=== PATIENT | female | born 1945 | race African-American/Black ===

== ENCOUNTER 2019-08-11 10:08 | Outpatient (CLI) | payer MEDICARE ==
[2019-08-11 10:53] LABS: Estimated GFR-MDRD - POC Greater than 90
--- NOTE | 2019-08-11 12:22 | CT ---
CT Abdomen Pelvis W Con HISTORY: Colonic mass noted on recent colonoscopy. COMPARISON: CT of chest performed the [facility] dated 04/02/2004 FINDINGS: The lung bases show some chronic change. There is some mild fatty change to the liver witho ut evidence of any focal mass. The spleen and pancreas regions appear unremarkable. The gallbladder has been removed. A large hiatal hernia is seen. The right adrenal gland is normal in appearance. There is a 3.2 cm left adrenal mass which does not h ave characteristics of an adenoma. Review of a 2004 CT of the chest does show that this lesion was present and is stable in size and therefore compatible with a benign lesion. The right and left kidne ys show somewhat lobulated contour. There is a hypodense lesion involving the right kidney difficult to characterize due to its small size CT Hounsfield unit numbers are 68 which are higher th an a typical cyst, this measures in the 13 mm range. This would require follow-up. There is no significant periaortic adenopathy. There is diffuse colonic diverticulosis noted. No mesenteric adeno estephania is appreciated. The appendix is normal. A fat-containing paraumbilical hernia is noted. CT of pelvis performed with contrast enhancement: There is a mass within the fundus region uterus thi s could potentially represent a subtle serosal fibroid but also could represent an endometrial mass. It measures 4.2 cm in size.. IMPRESSION: 1. Large hiatal hernia. 2. Colonic diverticulosis 3. 1.3 cm indeterminate right renal mass. Follow-up CT is recommended for assessment using renal mass protocol. 4. 4.2 cm mass within the fundus of the uterus, this could represent a subserosal fibroid but an endo metrial mass is not excluded gynecological consultation is recommended. 5. Stable left renal mass as compared to 2004 exam.
[2019-08-11] MEDS ORDERED: ISOVUE-370 76%-LOCM 1 ML ONE (12:34)
== END 2019-08-11 10:09 | disposition home or self-care (01) ==
LOC: BICCT 10:08
PROVIDERS: ATTEND Internal Medicine
DX: K63.89 Other specified diseases of intestine (principal); K44.9 Diaphragmatic hernia without obstruction or gangrene; K57.30 Diverticulosis of large intestine without perforation or abscess without bleeding; N28.89 Other specified disorders of kidney and ureter; N85.8 Other specified noninflammatory disorders of uterus
CPT/HCPCS: 74177; 82565

== ENCOUNTER 2019-08-26 10:13 | Outpatient (CLI) | payer MEDICARE ==
--- NOTE | 2019-08-26 14:26 | CT ---
CT ABDOMEN AND PELVIS WITH AND WITHOUT IV CONTRAST: HISTORY: Malignant neoplasm of sigmoid colon. COMPARISON: 08/11/2019. FINDINGS: There is a tiny calcified granuloma at the right lung base. There is mild linear scarring versus ate lectasis at the left lung base. A moderate-sized hiatal hernia is again noted. Vascular calcifications are seen in the coronary arteries as well as involving the abdominal aorta an d iliac arteries. The liver, spleen, pancreas, and right adrenal gland demonstrate a normal CT appearance. A 3.1 cm left adrenal mass is again seen which again does not have characteristics on the precontrast images of an adrenal adenoma, but washout characteristics are suggestive of adrenal adenoma. This l esion is also stable since the study in 2003. There is an increased density lesion present within the inferior pole of the right kidney which does not demonstrate enhancement between pre- and postcontrast images and is most suggestive of a Bosniak type II hyperdense renal cystic lesion. A few tiny nonobstructing renal calculi are seen bilaterally. There is no hydronephrosis or ureteral calculus seen. The previously noted heterogeneous mass-like density within the central aspect of the body and fundus of the uterus is present which again may represent a uterine fibroid measuring 3.6 cm, but an endome trial mass cannot be entirely excluded. There is a prominent ventral abdominal wall hernia in a periumbilical location. Multiple colonic div erticula are seen throughout the colon. The appendix is visualized and normal in caliber. Hemangioma is present in the L3 vertebral body. Degenerative changes are seen in the lower lumbar spi ne. No other interval change. IMPRESSION: 1. Bosniak type II cystic renal lesion right kidney. 2. Left adrenal adenoma. 3. Heterogeneous mass within the central aspect body and fundus of the uterus which may represen t a uterine fibroid, but an endometrial mass cannot be entirely excluded. As recommended on the prior exam, gynecological consultation is recommended. Pelvic ultrasound may be helpful for further evalua tion. 4. Moderately large hiatal hernia. 5. Ventral abdominal wall fat containing hernia. 6. Tiny nonobstructing bilateral renal calculi. POS: [facility]
== END 2019-08-26 10:14 | disposition home or self-care (01) ==
LOC: SCSCT 10:13
PROVIDERS: ATTEND Specialist
DX: C18.7 Malignant neoplasm of sigmoid colon (principal); N28.9 Disorder of kidney and ureter, unspecified; D35.02 Benign neoplasm of left adrenal gland; N85.8 Other specified noninflammatory disorders of uterus; K44.9 Diaphragmatic hernia without obstruction or gangrene; N20.0 Calculus of kidney
CPT/HCPCS: 74178

== ENCOUNTER 2019-09-21 09:49 | Outpatient (CLI) | payer MEDICARE ==
[2019-09-21 14:04] LABS: Hemoglobin A1c 6.4 % (4.0-6.0)
[2019-09-21 14:18] LABS: Anion Gap 16 mmol/L (10-20); BUN (Urea Nitrogen) 14 mg/dL (9.8-20.1); Calc. Creatinine Clearance 0 mL/min (70-130); Calcium 9.6 mg/dL (7.8-10.44); Carbon Dioxide 27 mmol/L (23-31); Chloride 104 mmol/L (98-107); Estimated GFR-MDRD 84; Glucose 103 mg/dL (83-110); Potassium 4.3 mmol/L (3.5-5.1); Sodium 143 mmol/L (136-145)
== END 2019-09-21 09:50 | disposition home or self-care (01) ==
LOC: LABBT 09:49
PROVIDERS: ATTEND Obstetrics & Gynecology
DX: Z01.818 Encounter for other preprocedural examination (principal); C18.9 Malignant neoplasm of colon, unspecified; D25.9 Leiomyoma of uterus, unspecified
CPT/HCPCS: 80048; 83036; 93005; 93010

== ENCOUNTER 2019-09-27 06:07 | Inpatient (IN) | payer MEDICARE ==
[2019-09-21 12:25] VITALS: BMI 34.4
[2019-09-21 14:05] LABS: Hemoglobin 14.4 g/dL (12.0-16.0); Mean Corpuscular HGB CONC 31.5 g/dL (32.0-36.0); Mean Corpuscular Hemoglobin 27.7 pg (27.0-31.0); Mean Corpuscular Volume 87.9 fL (78.0-98.0); Mean Platelet Volume 9.8 fL (7.4-10.4); Platelet Count 220 thou/uL (130-400); RBC Distribution Width 13.5 % (11.5-14.5); Red Blood Cell (RBC) Count 5.19 mill/uL (4.20-5.40); White Blood Cell (WBC) Count 9.1 thou/uL (4.8-10.8)
[2019-09-27] MEDS ORDERED: Sodium Chloride 0.9% 100 ML ONE (06:26)
[2019-09-27] MEDS ORDERED: cefOXitin 2 GM VIAL ONE ×3 (06:26→12:53)
[2019-09-27] MEDS ORDERED: Ketorolac Tromethamine 30 MG/ML VIAL ONE (06:27)
[2019-09-27] MEDS ORDERED: Fentanyl 250 MCG/5 ML VIAL ONE (06:35)
[2019-09-27] MEDS ORDERED: Midazolam HCl 2 mg/2 ml Vial ONE (07:07)
[2019-09-27] MEDS ORDERED: Fentanyl 100 MCG/2 ML VIAL ONE (07:07)
[2019-09-27] MEDS ORDERED: Bupivacaine/Epinephrine 0.25% 30 ML VIAL ONE (07:07)
--- NOTE | 2019-09-27 07:12 | HP ---
REASON FOR ADMISSION: Fibroid tumors of the uterus with invasive colon cancer. SCHEDULED PROCEDURE: Total laparoscopic hysterectomy with bilateral salpingo-oophorectomy in conjunction with colon resection with da Philomena robot. HISTORY OF PRESENT ILLNESS: Ms. Swanson is a 74-year-old 10, para , who was noted on CT scan to have a [address] Bowles will be doing a partial colon resection for invasive cancer of the colon and is concerned that the fibroid in the uterus may obstruct the surgical field. 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 No history of STDs. No history of dysplasia. PAST MEDICAL HISTORY: Significant for type 2 diabetes, hyperlipidemia, coronary artery disease, and hypertension. PAST SURGICAL HISTORY: Cholecystectomy, cataracts, iliac artery stents, and coronary artery stents. ALLERGIES: NONE. MEDICATIONS: 1. Amlodipine. 2. Proton pump inhibitor. 3. Furosemide. 4. Gabapentin. 5. Synthroid. 6. Losartan. 7. Metformin. 8. Metoprolol. SOCIAL HISTORY: Denies tobacco, alcohol, or IV drug abuse. FAMILY HISTORY: Noncontributory. REVIEW OF SYSTEMS: Noncontributory. PHYSICAL EXAMINATION: GENERAL: A pleasant, black female, no acute distress. VITAL SIGNS: Blood pressure 140/88, pulse 74, respirations 18. HEENT: Within normal limits. LUNGS: Clear to auscultation bilaterally. HEART: Regular rate and rhythm. ABDOMEN: Soft and nontender without rebound or guarding. : Vulva, without lesions. Vagina, without discharge. Cervix is postmenopausal. Uterus is anteverted, approximately 6-week size. Slightly irregular. Adnexa, no masses bilaterally. EXTREMITIES: Without clubbing, cyanosis, or edema. RADIOLOGY: Radiographic images revealed a solitary fibroid without adnexal masses. LABORATORY DATA: The patient's hematocrit is 45.6% with normal platelet count, normal white count. Hemoglobin A1c is 6.4. Basic metabolic panel is within normal limits with creatinine 0.81, and the patient's blood type is O positive, antibody negative. IMPRESSION: Fibroid uterus, postmenopausal with malignant tumor of the sigmoid colon. PLAN: Laparoscopic hysterectomy with bilateral salpingo-oophorectomy with da Philomena robot vaginal retrieval. We will administer appropriate antibiotic and DVT prophylaxis. Job ID: [id number]
[2019-09-27] MEDS ORDERED: PROPOFOL 20 ML ONE (07:58)
[2019-09-27] MEDS ORDERED: Phenylephrine HCL 10 MG/ML VIAL ONE (10:38)
[2019-09-27] MEDS ORDERED: Lidocaine 1% w/Epinephrine 1:100K 20 ML VIAL ONE (10:55)
[2019-09-27] MEDS ORDERED: SUGAMMADEX SODIUM 500 MG/5 ML VIAL ONE (13:35)
[2019-09-27] MEDS ORDERED: SUGAMMADEX SODIUM 200 MG/2 ML VIAL ONE (13:35)
[2019-09-27] MEDS ORDERED: Insulin Regular 300 UNITS/3 ML VIAL SC PRN (16:31)
[2019-09-27] MEDS ORDERED: Morphine 2 MG/ML SYRINGE SLOW IVP PRN (16:31)
[2019-09-27] MEDS ORDERED: Promethazine HCl 25 MG/ML VIAL IM PRN (16:31)
[2019-09-27] MEDS ORDERED: hydrALAZINE 20 MG/ML VIAL SLOW IVP PRN (16:31)
[2019-09-27] MEDS ORDERED: Morphine 4 MG/ML VIAL SLOW IVP PRN (16:31)
[2019-09-27] MEDS ORDERED: D5 1/2 NS w/20 mEq KCL 1,000 ML ONE (16:47)
[2019-09-27] MEDS: Ketorolac Tromethamine 30 MG/ML VIAL IVP SCH ×2 (17:47→23:49)
[2019-09-27] MEDS: Acetaminophen 1,000 MG in Premix Bag 1 BAG IVPB SCH ×2 (17:49→23:48)
[2019-09-27] MEDS ORDERED: Bupivacaine HCl 0.5%/Epinephrine 1:200,000/PF 30 ml Vial ONE (19:13)
[2019-09-27] MEDS ORDERED: ePHEDrine 50 MG/ML VIAL ONE (19:53)
[2019-09-27] MEDS ORDERED: Vecuronium 10 MG VIAL ONE (19:53)
[2019-09-27] MEDS ORDERED: Glycopyrrolate 0.2 MG/ML 5 ML SYRINGE ONE (19:53)
[2019-09-27] MEDS ORDERED: Rocuronium Bromide 10 MG/ML (10ML VIAL) ONE (19:53)
[2019-09-27] MEDS ORDERED: PROPOFOL 200 MG/20 ML VIAL ONE (19:53)
[2019-09-27] MEDS ORDERED: PHENYLEPHRINE-NS 100 MCG/ML 10 ML SYRINGE ONE (19:53)
[2019-09-27] MEDS ORDERED: Lidocaine 1% PF 5 ML VIAL ONE (19:53)
[2019-09-27] MEDS ORDERED: Ondansetron PF 4 MG/2 ML Vial ONE (19:53)
[2019-09-27] MEDS ORDERED: FLU VACC TS2019-20(65YR UP)/PF 180 MCG/0.5 ML SYRINGE IM ONE (21:00)
[2019-09-27] MEDS ORDERED: Prevnar 13-Val Conj/PF 0.5 ML SYRINGE IM ONE (21:00)
[2019-09-27] MEDS: Enoxaparin Sodium 40 MG/0.4 ML SYRINGE SC SCH (21:08)
[2019-09-27] MEDS: Amlodipine 10 MG TAB PO SCH (21:08)
[2019-09-27] MEDS: Famotidine 20 MG TAB PO SCH (21:08)
[2019-09-27] MEDS: Gabapentin 300 MG CAP PO SCH (21:08)
[2019-09-27] MEDS: Atorvastatin Calcium 20 MG TAB PO SCH (21:09)
[2019-09-27] MEDS: Famotidine/PF 20 mg/2ml Vial SLOW IVP SCH (21:09)
[2019-09-28] MEDS: D5 1/2 NS w/20 mEq KCL 1,000 ML IV SCH ×4 (00:55→20:42)
[2019-09-28] MEDS: Ketorolac Tromethamine 30 MG/ML VIAL IVP SCH ×4 (05:24→23:02)
[2019-09-28] MEDS: Acetaminophen 1,000 MG in Premix Bag 1 BAG IVPB SCH ×2 (05:25→11:49)
[2019-09-28 06:12] LABS: #Eosinphils 0.3 thou/uL (0.0-0.7); #Lymphocytes 1.4 thou/uL (1.20-3.40); #Neutrophils 7.6 thou/uL (1.40-6.50); %Basophils 0.3 % (0.0-1.0); %Eosinophils 2.7 % (0.0-10.0); %Lymphocytes 13.7 % (21.0-51.0); %Monocytes 9.7 % (0.0-10.0); %Neutrophils 73.6 % (42.0-75.0); Hemoglobin 11.3 g/dL (12.0-16.0); Mean Corpuscular HGB CONC 32.2 g/dL (32.0-36.0); Mean Corpuscular Hemoglobin 28.4 pg (27.0-31.0); Mean Corpuscular Volume 88.3 fL (78.0-98.0); Platelet Count 179 thou/uL (130-400); RBC Distribution Width 13.6 % (11.5-14.5); Red Blood Cell (RBC) Count 3.98 mill/uL (4.20-5.40); White Blood Cell (WBC) Count 10.3 thou/uL (4.8-10.8)
[2019-09-28] MEDS: Levothyroxine Sodium 50 MCG TAB PO SCH (06:41)
[2019-09-28 06:43] LABS: Anion Gap 11 mmol/L (10-20); BUN (Urea Nitrogen) 5 mg/dL (9.8-20.1); Calc. Creatinine Clearance 138 mL/min (70-130); Calcium 7.9 mg/dL (7.8-10.44); Carbon Dioxide 22 mmol/L (23-31); Chloride 111 mmol/L (98-107); Estimated GFR-MDRD Greater than 90; Glucose 115 mg/dL (83-110); Sodium 140 mmol/L (136-145)
--- NOTE | 2019-09-28 07:40 | PDOC.GSPN ---
Surgery Progress Note: Subj - Subjective Patient reports: positive flatus, pain well controlled, tolerating liquids well , no bowel movement Narrative: Ms Swanson is a 74 y/o female POD#1 Robotic Total Laparoscopic Hysterectomy for uterine fibroid mass, Laparoscopic sigmoid colectomy for invasive adenocarcinoma of the sigmoid colon and ventral hernia repair. She did not have any acute events overnight, was afebrile and her pain is controlled with medication and is rated at a 1/10. The pain is mostly located in the left flank and lower abdomen region without radiation. She describes it as a pulling/ cramping pain at the incision sites. She passed flatus, but no BM overnight. She denies nausea or vomiting and is tolerating her clear liquid diet well. Her urine output overnight was 0.65 ml/kg/hr via freire catheter. She has not ambulated or used incentive spirometry. Surgery Progress Note: Obj - Vital signs Vital signs: Vital Signs - Most Recent Temp Pulse Resp BP Pulse Ox 98.2 F 73 18 124/58 L 97 09/28/19 00:00 09/28/19 00:00 09/28/19 00:00 09/28/19 00:00 09/28/19 00:00 - Physical Exam General: no distress ENT: no congestion, normal mucosa Neck: other (Supple neck, no lymphadenopathy. Left IJ site clean and dry.) Cardiovascular: regular rate and rhythm, no murmur Respiratory: clear to auscultation Abdomen: soft, positive bowel sounds (slightly hopoactive bowel sounds), appropriately tender Psychiatric: oriented to time, oriented to person, oriented to place Wound: dressing clean,dry,intact (ventral incision site has packing inplace and is not draining.), healing well (Laparoscopic incision sites without erythema or drainage.), other (RUQ healed incision from previous cholectomy.) Surgery Progress Note: Results - Labs Result Diagrams: 09/28/19 05:39 09/28/19 05:39 Lab results: Laboratory Results - last 24 hr 09/27/19 09/28/19 09/28/19 21:44 05:39 05:39 WBC 10.3 RBC 3.98 L Hgb 11.3 L Hct 35.1 L MCV 88.3 MCH 28.4 MCHC 32.2 RDW 13.6 Plt Count 179 MPV 9.0 Neutrophils % 73.6 Lymphocytes % 13.7 L Monocytes % 9.7 Eosinophils % 2.7 Basophils % 0.3 Neutrophils # 7.6 H Lymphocytes # 1.4 Monocytes # 1.0 H Eosinophils # 0.3 Basophils # 0.0 Sodium 140 Potassium 4.0 Chloride 111 H Carbon Dioxide 22 L Anion Gap 11 BUN 5 L Creatinine 0.66 Estimated GFR (MDRD) Greater than 90 Glucose 115 H POC Glucose 155 H Calcium 7.9 09/28/19 06:48 WBC RBC Hgb Hct MCV MCH MCHC RDW Plt Count MPV Neutrophils % Lymphocytes % Monocytes % Eosinophils % Basophils % Neutrophils # Lymphocytes # Monocytes # Eosinophils # Basophils # Sodium Potassium Chloride Carbon Dioxide Anion Gap BUN Creatinine Estimated GFR (MDRD) Glucose POC Glucose 111 H Calcium Surgery Progress Note: A/P - Plan Plan: Ms Swanson is a 74 y/o female is POD#1 Robotic Total Laparoscopic Hysterectomy for uterine fibroid mass, Laparoscopic sigmoid colectomy for invasive adenocarcinoma of the sigmoid colon and ventral hernia repair is recovering well. Her pain is well controlled. Her blood pressures have been good post op and she should continue home meds. Blood glucose well controlled with metformin. She is tolerating clear liquid diet well and can advance to full liquids today. Urine output is adequate and plan is remove freire catheter. Patient was educated on appropriate incentive spirometry usage and ambulation. PT is scheduled to see her today. Patient's hemoglobin (14.4 to 11.3 today) and hematocrit (45.6 to 35.1 today). Decrease in Hemoglobin and Hematocrit is appropriate given her major surgery yesterday. Plan is to continue monitoring.
[2019-09-28] MEDS: Aspirin 81 mg Enteric Coated Tablet PO SCH (09:48)
[2019-09-28] MEDS: metFORMIN 500 MG TAB PO SCH ×2 (09:48→21:33)
[2019-09-28] MEDS: CeleCOXIB 100 MG CAP PO SCH (09:49)
[2019-09-28] MEDS: Famotidine/PF 20 mg/2ml Vial SLOW IVP SCH ×2 (09:49→20:39)
[2019-09-28] MEDS: Famotidine 20 MG TAB PO SCH ×2 (09:49→20:39)
[2019-09-28] MEDS: Furosemide 40 MG TAB PO SCH (09:49)
[2019-09-28] MEDS: Gabapentin 300 MG CAP PO SCH ×2 (09:49→20:40)
[2019-09-28] MEDS: Losartan 25 MG TAB PO SCH (09:53)
--- NOTE | 2019-09-28 10:15 | OP ---
DATE OF PROCEDURE: 09/27/2019 REASON FOR SERVICE: Uterine fibroids with sigmoid colon cancer. PROCEDURES PERFORMED: Total laparoscopic hysterectomy, bilateral salpingo-oophorectomy, partial colon resection with Dr. Ashish Bowles. 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 ANESTHESIA: General endotracheal. ESTIMATED BLOOD LOSS: Less than 100 mL. COMPLICATIONS: None. OPERATIVE FINDINGS: 1. Postmenopausal uterus with small posterior uterine fibroid obstructing the posterior cul-de-sac and location of sigmoid cancer. 2. Normal-appearing tubes and ovaries bilaterally. 3. Hemostasis, clear urine. COUNTS: Correct at the end of the procedure. MEDICATIONS: Mefoxin per Dr. Bowles preoperatively. DESCRIPTION OF PROCEDURE: After obtaining appropriate informed consent, the patient was taken to the operating room, where general endotracheal anesthesia was achieved without difficulty. She was prepped and draped in dorsal lithotomy position in Gene stirrups. Sliding speculum was placed in vagina. Cervix was identified and grasped with single-tooth tenaculum. Uterus was sounded to 8 cm, and the SUMA manipulator with a 3.5 cm vaginal buffet waiter/waitress, and a 6 cm obturator was placed without difficulty. Zuñiga catheter was placed and placed in the abdomen with a syringe. Approximately 200 mL of clear urine was drained. Cloth Checker changed, turned to abdominal portion of the procedure. A 5 mL of Marcaine was injected at the superior aspect of the umbilicus, and a 12 mm skin incision was made. Veress needle was placed inside the abdominal cavity. Insufflation was carried out with carbon dioxide at max pressure of 15, volume approximately 3 L. A 12 mm Hiral cannula was introduced into the abdominal cavity. The patient was placed in steep Trendelenburg and findings as noted in the operative findings were noted. Da Philomena ports were placed right and left lateral to the epigastric vessels in the usual place as well as an 11 mm billing and accounting staff assistant port in the right upper quadrant. Monopolar scissors were placed in the right hand and bipolar fenestrated forceps in the left. The left adnexum was mobilized and coagulated. The infundibulopelvic ligament was transected through the broad and the round down the level of the internal cervical os. Anteriorly, the patient was noted to have a very redundant bladder. This was lifted up by the way, and the vesicouterine peritoneum was incised sharply, and the bladder was dissected off the cervix and lower uterine segment and upper vagina. Skeletonization of the uterine vessels was carried out. These were coagulated and transected. Attention was turned to the patient's right, where an identical procedure was carried out, coagulating and transecting the infundibulopelvic, the broad, the round, and down to the internal cervical os, completing the incision through the vesicouterine peritoneum and dissecting the bladder off the cervix and upper vagina. Bladder was backfilled to assure its location. Skeletonization of the uterine vessels on the right was carried out as well. These were coagulated and transected. Once this was achieved, the vagina was entered anteriorly at 12 o'clock, extended from 12 o'clock to 3 o'clock and 12 o'clock to 9 o'clock, coagulating and transecting any blood vessels encountered along the way posteriorly, it was extended from 6 o'clock to 9 o'clock and 6 o'clock to 3 o'clock, doing the same thing. Uterosacral ligaments were well identified. The specimen was amputated and pulled into the vagina to maintain pneumoperitoneum. The cuff was inspected and noted to be relatively hemostatic. It was closed using a running continuous 2-0 PDS suture lock running from the patient's right to left and then back to right in a 2-layer technique. Good hemostasis was noted. The area was suctioned and irrigated. Reinspection revealed good hemostasis. Tisseel was applied across all surgical beaver. Re-inspection of the IP, coagulation and transection site revealed them to be dry as well. At this point in time, the specimen was retrieved from the vagina. The vagina was noted to be without laceration. Dr. Bowles entered the room to complete the rest of the procedure. Job ID: [id number]
[2019-09-28] MEDS: Ondansetron PF 4 MG/2 ML Vial IVP PRN ×2 (18:20→23:20)
[2019-09-28] MEDS ORDERED: Sodium Chloride 0.9% 10 ML ONE (20:27)
[2019-09-28] MEDS: Enoxaparin Sodium 40 MG/0.4 ML SYRINGE SC SCH (20:39)
[2019-09-28] MEDS: Atorvastatin Calcium 20 MG TAB PO SCH (20:39)
[2019-09-28] MEDS: Amlodipine 10 MG TAB PO SCH (20:41)
[2019-09-28] MEDS ORDERED: Sodium Chloride 0.9% 20 ML ONE ×2 (22:45→22:52)
[2019-09-29] MEDS: Acetaminophen 1,000 MG in Premix Bag 1 BAG IVPB PRN ×2 (00:41→07:27)
[2019-09-29] MEDS ORDERED: Sodium Chloride 0.9% 10 ML ONE (06:04)
[2019-09-29] MEDS: Ketorolac Tromethamine 30 MG/ML VIAL IVP SCH (06:08)
[2019-09-29] MEDS: Levothyroxine Sodium 50 MCG TAB PO SCH (06:09)
[2019-09-29] MEDS: D5 1/2 NS w/20 mEq KCL 1,000 ML IV SCH (07:32)
--- NOTE | 2019-09-29 08:08 | RAD ---
PORTABLE CHEST 1 VIEW: Date: 09/29/19 Time: 0718 hours HISTORY: Postop fever. FINDINGS: Comparison made with exam of 09/09/14. The heart is enlarged. There is a large hiatal hernia. No focal areas of consolidation, pneumothorace s, anjum pulmonary edema, or pleural effusions are seen. IMPRESSION: No acute process. POS: [facility]
[2019-09-29 08:30] LABS: #Eosinphils 0.4 thou/uL (0.0-0.7); #Lymphocytes 1.5 thou/uL (1.20-3.40); #Monocytes 0.9 thou/uL (0.11-0.59); #Neutrophils 7.5 thou/uL (1.40-6.50); %Basophils 0.2 % (0.0-1.0); %Lymphocytes 14.8 % (21.0-51.0); %Monocytes 8.6 % (0.0-10.0); %Neutrophils 72.4 % (42.0-75.0); Hemoglobin 10.7 g/dL (12.0-16.0); Mean Corpuscular Volume 90.1 fL (78.0-98.0); Mean Platelet Volume 9.2 fL (7.4-10.4); Platelet Count 157 thou/uL (130-400); RBC Distribution Width 13.6 % (11.5-14.5); Red Blood Cell (RBC) Count 3.83 mill/uL (4.20-5.40); White Blood Cell (WBC) Count 10.4 thou/uL (4.8-10.8)
[2019-09-29] MEDS: Famotidine 20 MG TAB PO SCH (10:02)
[2019-09-29] MEDS: Aspirin 81 mg Enteric Coated Tablet PO SCH (10:02)
[2019-09-29] MEDS: metFORMIN 500 MG TAB PO SCH (10:03)
[2019-09-29] MEDS: Gabapentin 300 MG CAP PO SCH (10:03)
[2019-09-29] MEDS: CeleCOXIB 100 MG CAP PO SCH (10:03)
[2019-09-29] MEDS: Losartan 25 MG TAB PO SCH (10:04)
[2019-09-29] MEDS: Furosemide 40 MG TAB PO SCH (10:08)
[2019-09-29 12:39] VITALS: BP 143/74; TEMP 98.4
--- NOTE | 2019-09-30 05:10 | DIS ---
DATE OF ADMISSION: 09/27/2019 DATE OF DISCHARGE: 09/29/2019 ADMISSION DIAGNOSES: Sigmoid colon cancer, uterine fibroid disease. PROCEDURES PERFORMED: Robotic hysterectomy per Dr. Randhawa, laparoscopic sigmoid colectomy per Dr. Bowles, repair of ventral abdominal hernia per Dr. Bowles. ADMISSION HISTORY: The patient is a 74-year-old black female. She underwent Cologuard screening with positive findings. Subsequent colonoscopy revealed a sigmoid colon cancer. This was tattooed. The patient had at least a 4 cm uterine fibroid. I recommended hysterectomy concurrent with her surgery for better pelvic access for the surgery. HOSPITAL COURSE: She underwent uneventful robotic hysterectomy per Dr. Randhawa. The only area of concern with the early part of the operation was IV access. She eventually had an external jugular IV placed per Anesthesia during the operation. I subsequently performed a laparoscopic sigmoid colectomy. She did very well after the surgery. She was started on clear liquids on postoperative day number one. She had a little nausea on postoperative day number one and a slight temperature elevation of 100.7. I believe this is secondary to atelectasis that she was refusing to cough at that time. Today, she is doing much better. She has active bowel sounds and has had bowel movements and flatus. She has tolerated her diet. Her temperature elevation has resolved. Her white blood cell count remained stable and within normal limits. Chest x-ray today reveals no evidence of concerning abnormality. She has done well following her surgery. She is stable for discharge at this time. She will be discharged home on a soft diet with instructions to advance over the next few days. She will be given a discharge prescription for tramadol. She is instructed to ambulate regularly. She still has occlusive dressing over her umbilical incision site. This may be removed when she is seven days out from surgery. I will see her in my office in 2 weeks out from surgery. Job ID: [id number]
--- NOTE | 2019-09-30 05:13 | DIS ---
DATE OF ADMISSION: 09/27/2019 DATE OF DISCHARGE: 09/29/2019 ADMITTING DIAGNOSIS: Sigmoid colon cancer with uterine fibroids. HOSPITAL PROCEDURES: 1. Partial colectomy by Dr. Ashish Bowles. 2. Total laparoscopic hysterectomy, bilateral salpingo-oophorectomy by Dr. Kory Randhawa. SUMMARY OF HOSPITAL COURSE: Ms. Swanson underwent the aforementioned procedure, total laparoscopic hysterectomy and partial sigmoid colon resection by Dr. Ashish Bowles. Please see his op note for description of that procedure. She had an unremarkable postoperative course and was discharged home on postop day number [address] Bowles. She will have follow up with him as dictated by him and follow up with me at [facility] in 6 weeks. DISCHARGE MEDICATIONS: Included the patient's admission medications plus analgesics. Job ID: [id number]
--- NOTE | 2019-09-30 13:57 | OP ---
DATE OF PROCEDURE: 09/27/2019 PREOPERATIVE DIAGNOSIS: Sigmoid colon cancer. POSTOPERATIVE DIAGNOSIS: Sigmoid colon cancer. OPERATIONS PERFORMED: Laparoscopic sigmoid colectomy, repair of ventral abdominal hernia. ANESTHESIA: General endotracheal. INDICATIONS: The patient is a 74-year-old black female. 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 I recommended laparoscopic sigmoid colectomy as definitive treatment. CT scan revealed a 4-cm mass within the uterus. I had requested a gynecologic evaluation for concurrent hysterectomy. Dr. Kory Randhawa performed an uneventful robotic hysterectomy and bilateral salpingo-oophorectomy immediately prior to this operation. When I presented to the operating room, she was under general endotracheal anesthesia with robotic ports in place and in Trendelenburg position, stable condition. DESCRIPTION OF OPERATION: Informed consent had been obtained preoperatively. As mentioned, the patient was already under anesthesia with ports in place. I initially continued the operation from the robotic console. The patient had a supraumbilical incision/port (actually placed through a supraumbilical ventral hernia) as well as robotic ports in the right and left abdomen and an assist port in the right upper quadrant. With the patient's obesity, it was difficult to mobilize the small bowel away from the base of the mesentery of the sigmoid colon. I shifted things as I could to try and visualize this, and I never could reach a safe window that allowed appropriate visualization for dissection. I therefore initially turned my attention to colon mobilization. I mobilized the entire left colon by incising the white line of Toldt up to the splenic flexure and mobilizing the colon medially along that plane. The dissection was carried down adjacent to the sigmoid colon. I was able to mobilize the proximal portion of the rectum. The patient had an easily visualized tattoo in the mid to distal sigmoid colon. At the point that I felt that I needed to redock the robot, I decided it would be more sessile to proceed with a hand-assisted laparoscopy and therefore terminated the robotic portion of the operation. I placed an 8-cm extraction incision in the left lower quadrant using muscle-splitting technique and placed the Rubens wound retractor through this. I fixed the GelPort to the wound retractor. With left hand in the abdomen, I also placed a laparotomy pad in the abdomen and utilized this to help retract the small bowel. The bed position was shifted also, and I was able to visualize the base of the sigmoid mesentery. This was incised with electrocautery. Dissection was carried into the retrorectal space. I dissected to the left side where I identified the ureter and swept this posteriorly. I then dissected a little bit down into the pelvis in the extra-mesenteric space. This was well beyond the tattooed area of the malignancy. I then dissected through the mesentery using the LigaSure device to skeletonize the distal sigmoid colon/upper rectum. I brought a 60-mm Cambalache stapler with a blue load into the abdomen used this to divide the colon at the level that had been dissected. This was done with a single fire of the stapler. I dissected the mesentery proximally to the inferior mesenteric artery. I then identified a segment of descending colon that would easily reach down to the stapled end of the rectum. This was marked with the LigaSure device. The colon was then externalized through the wound retractor. The abdomen was then tailed off, and segregated instruments were used. I first completed the mesenteric dissection including division of the inferior mesenteric artery between clamps and 2-0 silk ties. The remainder of the mesentery was dissected with the LigaSure device. I dissected up to the area of the intended proximal transection. A colotomy was created and through this, I placed sizers to identify the caliber of the lumen. She had a relatively narrow colon at this level, and I selected a 28-mm EEA stapler. The anvil of this was passed through the colotomy and brought out several centimeters proximally antimesenteric. A final firing of the linear stapler was placed across the colon to exclude the colotomy in continuity with the segment to be resected. The specimen was passed off the field. The tattoo was at least 6 cm away from the distal end. All segregated instruments were passed off the field, and gloves were changed. The spike of the anvil that had passed through the colon wall was cleansed with Betadine, and a pursestring suture of 2-0 Prolene was placed around the base of the anvil as well. The anvil was then dropped back down to the abdominal cavity, and laparoscopy was re-initiated. From below, EEA sizers were passed through the anus up to the staple line passing without any difficulty or tension at all. The 28-mm EEA stapler was then passed up to the staple line and under direct vision and palpation, the spike was advanced through the center of the staple line. This was affixed to the anvil. The two segments of bowel were approximated and anastomosed by firing the stapler. Staple was removed uneventfully, and donuts were inspected, which were found to be of excellent quality. They were not submitted as there was no concern for malignancy at this level. The anastomosis was checked for integrity by insufflating air through the anastomosis while it was under water and there was no evidence of air leak. All air was released. The irrigant within the abdominal cavity was all aspirated. The areas that had been dissected were inspected one final time with findings of complete hemostasis. The fascial defect at the 12 mm port in the right upper quadrant was closed with 0 Vicryl suture using a GraNee needle. The other ports were removed under direct vision. Pneumoperitoneum was carefully evacuated. The laparoscopic equipment and the wound retractor were all passed off the field. The abdominal wall was cleansed with saline. Gowns and gloves were changed, and attention was first turned to the umbilicus. It was noted that the supraumbilical port had passed directly through the hernia. There was no fascia that reapproximated at that level. I therefore felt it was mandatory to perform a limited repair of the hernia. I dissected the fascia circumferentially. This was about a 4-cm defect. I approximated the fascia in a running transverse suture of #1 PDS. I never considered using mesh because of the colon resection. The umbilicus was secured down to the fascia with a [id number] suture of 3-0 Vicryl. The wound was closed in layers with 3-0 and 4-0 Monocryl. The other skin incisions were closed with interrupted sutures of 4-0 Monocryl. Attention was turned to the left lower quadrant. The fascia at that level was closed in 2 layers with #1 PDS. The wound was copiously irrigated (as was the supraumbilical wound) and the remainder of the wound was closed in layers with 3-0 and 4-0 Monocryl. Dermabond was placed externally on all incisions. I placed a compression dressing on the umbilical wound to minimize subcutaneous seroma. There were no complications. Blood loss during the operation was negligible, less than 50 mL. The patient tolerated the procedure well and was taken to recovery room in stable condition. Job ID: [id number]
== END 2019-09-29 14:15 | disposition home or self-care (01) | DRG 330 ==
LOC: SDC 06:07 → 3SE 13:53 → EDSTATUS 16:15
PROVIDERS: ADMIT Obstetrics & Gynecology; ATTEND Obstetrics & Gynecology
PROC: 0UT94ZZ Resection of Uterus, Percutaneous Endoscopic Approach (ICD-10-PCS; principal; 2019-09-27)
PROC: 0UB24ZZ Excision of Bilateral Ovaries, Percutaneous Endoscopic Approach (ICD-10-PCS; 2019-09-27)
PROC: 0UB74ZZ Excision of Bilateral Fallopian Tubes, Percutaneous Endoscopic Approach (ICD-10-PCS; 2019-09-27)
PROC: 8E0W4CZ Robotic Assisted Procedure of Trunk Region, Percutaneous Endoscopic Approach (ICD-10-PCS; 2019-09-27)
PROC: 3E02340 Introduction of Influenza Vaccine into Muscle, Percutaneous Approach (ICD-10-PCS; 2019-09-27)
PROC: 3E0234Z Introduction of Serum, Toxoid and Vaccine into Muscle, Percutaneous Approach (ICD-10-PCS; 2019-09-27)
PROC: 0DBN4ZZ Excision of Sigmoid Colon, Percutaneous Endoscopic Approach (ICD-10-PCS; 2019-09-27)
PROC: 0WQF4ZZ Repair Abdominal Wall, Percutaneous Endoscopic Approach (ICD-10-PCS; 2019-09-27)
DX: C18.7 Malignant neoplasm of sigmoid colon (principal); J98.11 Atelectasis; D25.9 Leiomyoma of uterus, unspecified; Z23 Encounter for immunization; E11.9 Type 2 diabetes mellitus without complications; E78.5 Hyperlipidemia, unspecified; I25.10 Atherosclerotic heart disease of native coronary artery without angina pectoris; I10 Essential (primary) hypertension; I27.20 Pulmonary hypertension, unspecified; K44.9 Diaphragmatic hernia without obstruction or gangrene; E03.9 Hypothyroidism, unspecified; E66.9 Obesity, unspecified; F17.220 Nicotine dependence, chewing tobacco, uncomplicated; Z90.49 Acquired absence of other specified parts of digestive tract; Z95.5 Presence of coronary angioplasty implant and graft; Z79.84 Long term (current) use of oral hypoglycemic drugs; Z79.899 Other long term (current) drug therapy; Z98.41 Cataract extraction status, right eye; Z68.34 Body mass index [BMI] 34.0-34.9, adult
CPT/HCPCS: 36415; 36416; 71045; 80048; 85025; 85027; 86850; 86900; 86901; 88307; 88309; 90471; 90670; G0009; J0131; J0670; J0694; J1650; J1815; J1885; J2001; J2250; J2270; J2370; J2405; J2704; J3010; J3490

== ENCOUNTER 2021-02-22 13:32 | Outpatient (CLI) | payer MEDICARE ==
[2021-02-23 05:31] LABS: SARS-CoV-2 PCR by NAA Not Detected (NotDetected)
== END 2021-02-22 13:33 | disposition home or self-care (01) ==
LOC: LABBT 13:32
PROVIDERS: ATTEND Internal Medicine
DX: Z01.812 Encounter for preprocedural laboratory examination (principal); R13.10 Dysphagia, unspecified; K44.9 Diaphragmatic hernia without obstruction or gangrene; Z20.822 Contact with and (suspected) exposure to COVID-19
CPT/HCPCS: U0003; U0005; 87635

== ENCOUNTER → 2021-02-27 | Day surgery (SDC) | payer MEDICARE | LOC: SDC 07:57 | PROVIDERS: ATTEND Internal Medicine | DX: K44.9 Diaphragmatic hernia without obstruction or gangrene (principal); R13.10 Dysphagia, unspecified; I25.10 Atherosclerotic heart disease of native coronary artery without angina pectoris; E11.9 Type 2 diabetes mellitus without complications; K21.9 Gastro-esophageal reflux disease without esophagitis; E78.00 Pure hypercholesterolemia, unspecified; I10 Essential (primary) hypertension; E07.9 Disorder of thyroid, unspecified; Z85.038 Personal history of other malignant neoplasm of large intestine; Z79.82 Long term (current) use of aspirin; Z79.84 Long term (current) use of oral hypoglycemic drugs; Z79.899 Other long term (current) drug therapy; Z91.018 Allergy to other foods | CPT/HCPCS: 91010 ==